=== PATIENT | female | born 1975 | race Native Hawaiian/Other Pacific Islander ===

== ENCOUNTER 2016-08-31 10:07 | Emergency (ER) | payer OTHER ==
[~2016-08-31] VITALS: Ht 165.1 cm; Wt 79.4 kg
[2016-08-31] MEDS ORDERED: CARI350T15 PO (11:31)
[2016-08-31] MEDS ORDERED: LEVO0.0723 PO (11:31)
[2016-08-31] MEDS ORDERED: VITAMIN D OR (11:32)
[2016-08-31] MEDS ORDERED: EDLUAR5 MG SL (11:33)
[2016-08-31 13:21] LABS: PLATELET COUNT 249 K/uL (152-353)
[2016-08-31 13:31] LABS: POTASSIUM 3.6 mmol/L (3.6-5.2); SODIUM 140 mmol/L (136-145)
[2016-08-31] MEDS ORDERED: CLON1TAB18 PO (16:44)
[2016-08-31] MEDS ORDERED: PRISTIQ50 MG OR (16:46)
[2016-08-31] MEDS ORDERED: SUMATRIPTAN100 MG OR (16:47)
== END 2016-08-31 19:10 | disposition other institution (70) ==
LOC: ED 10:07
DX: R45.851 Suicidal ideations (principal); F32.89 Other specified depressive episodes
CPT/HCPCS: 36415; 80053; 80307; 80320; 80329; 81000; 81025; 85027; 93005; 99285; G0479